=== PATIENT | female | born 1955 | race Caucasian/White ===

== ENCOUNTER → 2018-03-28 10:26 | Outpatient (CLI) | payer OTHER, SELFPAY | PROVIDERS: Family Provider Family Medicine; PCP Family Medicine; Visit Provider Obstetrics & Gynecology | DX: Z12.31 Encounter for screening mammogram for malignant neoplasm of breast (principal); Z78.0 Asymptomatic menopausal state; M81.0 Age-related osteoporosis without current pathological fracture | CPT/HCPCS: 77063; 77067; 77080 ==

== ENCOUNTER → 2018-04-09 09:31 | Outpatient (CLI) | payer OTHER, SELFPAY | PROVIDERS: Family Provider Family Medicine; PCP Family Medicine; Visit Provider Physician Assistant | DX: M25.511 Pain in right shoulder (principal); G89.29 Other chronic pain | CPT/HCPCS: 73030 ==

== ENCOUNTER 2018-04-20 10:30 | Outpatient (RCR) | payer OTHER, SELFPAY ==
--- NOTE | 2018-04-09 16:03 | HP.PTEVAL ---
Patient's Visit Information MAHIN NG is a 62 year old F referred to Physical Therapy by AMEYA Serna with a diagnosis of R shoulder rot cuff impingement. Date of Evaluation: 04/09/18 Physical Therapist: Elliott Templeton PT, - Visit Plan Frequency: 2x /Week Duration: 2-4 Weeks Plan: R shoulder strengthening (rot cuff), scap stab ex's, UBE, and HEP - Subjective Subjective: Pt reports her R shoulder has been sore for 4 mos. Pt reports her pain had an insidious onset in nature. Pt reports she is L hand dom. No PMHx of R wshoulder complications. Pt is not currently working. Pt notes she has diff with carrying heavy objects. Pt reports occasional sleep diff secondary to pain. Pt reports she still does all of her house duties, but she has pain with most of her acivities. Pt reports taking a hot shower helps to decrease her pain. Pt did have xrays which revealed no tears at this time. 1/10 at rest, 7/10 at worst - Pain R shoulder Pain Intensity (Out of 10): 1 Pain Intensity Range: 7 - Objective Neuro: B UE sensation is WNL to light touch. B bicepital reflex= 2/3. Palpation: Pt is mostly sore on the lateral aspect of R shoulder. ROM: L shoulder flex= 160, abd= 170, ER= 60, IR WNL; R shoulder flex= 160, abd= 170, ER= 60, IR WNL. MMT: L UE grossly 5/5 throughout. R LE grossly 4-/5 and painful with all testing. Special tests: Pos empty can sign - Goals Goal 1:: Decrease R shoulder pain x 50% to aid with sleep Goal Time Frame: 2-4 Weeks Goal 2:: Increase R shoudler strength x 1 grade to aid with IADL's Goal Time Frame: 2-4 Weeks Goal 3:: I with HEP Goal Time Frame: 2-4 Weeks - Rehabilitation Potential Physical Therapy Diagnosis: R shoulder pain and weakness secondary to R rot cuff impingement. Rehabilitation Potential: Good - Anticipated Interventions Patient/Client Instruction: Educate patient on: Condition, Plan of Care For the Purpose of:: To improve self management Therapeutic Exercise to Include: Strength training, Endurance training, Flexibilty training, Passive ROM, Scapular Strength/Stabilization For the Purpose of:: To decrease pain, To increase ROM, To improve muscle performance and motor function Cryotherapy (ice pack, ice massage): Yes For the Purpose of:: To decrease pain Thank you for the opportunity to evaluate your patient. For Medicare and Medicare HMO plans, please review the plan of care and approve it. It will need to be FAXED BACK to us at [phone] for Medicare purposes. Please let me know if there are questions or concerns regarding this plan of care. Physician Signature: Date:
--- NOTE | 2018-04-20 11:01 | HP.PTDCSUM ---
HP - PT D/C Summary It has been my pleasure to treat MAHIN NG under orders from AMEYA Serna, for the diagnosis of R shoulder rot cuff impingement for a total of 5 visit(s). Discharge Date: Please see the following information for a summary of their discharge status. - Subjective Subjective: Pt reports no pain this date - Pain R shoulder Pain Intensity (Out of 10): 0 - Overall Improvement % Improvement: 85 - Objective Objective/Function: R shoulder pain 0/10. R shoulder MMT: 5/5 throughout. I with HEP. Rx goals achieved - Goals Goal 1:: Decrease R shoulder pain x 50% to aid with sleep Goal Progress: Goal Met Goal 2:: Increase R shoudler strength x 1 grade to aid with IADL's Goal Progress: Goal Met Goal 3:: I with HEP Goal Progress: Goal Met - Plan Plan: discharge - D/C Information If there are questions or concerns regarding this patient's physical therapy, please feel free to call me at [phone]. Thank you for the referral of this patient. Sincerely, Elliott Templeton, PT,
== END 2018-04-20 13:43 | disposition home or self-care (01) ==
LOC: PT 10:30
PROVIDERS: Family Provider Family Medicine; PCP Family Medicine; Visit Provider Physician Assistant
DX: M75.41 Impingement syndrome of right shoulder (principal)
CPT/HCPCS: 97110; 97161; 97530

== ENCOUNTER → 2018-06-27 09:58 | Outpatient (CLI) | payer OTHER, SELFPAY ==
[2018-06-27 11:53] LABS: Absolute Lymphocyte Count 1.26 X10^3/ul (0.83-4.51); Absolute Neutrophil Count 1.9 X10^3/uL (2.0-7.7); Basophil# 0.03 X10^3/uL; Basophil% 0.8 % (0-1); Eosinophil# 0.11 X10^3/uL; Eosinophils% 3.1 % (0-5); Hematocrit 43.2 % (37-47); Lymphocyte # 1.26 X10^3/ul (4.0); Lymphocyte % 35.2 % (19-41); Mean Corp Hgb Conc 32.4 g/gl (32-36); Mean Corpuscular Hgb 30.2 pg (27.0-32.0); Mean Corpuscular Volume 93.1 fL (81-99); Monocyte# 0.31 X10^3/uL; Monocyte% 8.7 % (0-10); Neutrophil # 1.87 X10^3/uL (2.7-7.7); Neutrophil % 52.2 % (47-70); Platelet Count 246 K/mm3 (150-450); RBC Distribution Width CV 13.6 % (11.6-14.6); RBC Distribution Width SD 44.9 fl (35.1-43.9); Red Blood Count 4.64 M/mm3 (4.2-5.4); White Blood Count 3.6 K/mm3 (4.4-11.0)
[2018-06-27 12:00] LABS: POSITIVE COUNT NO; POSITIVE DIFFERENTIAL NO; POSITIVE MORPHOLOGY NO
[2018-06-27 12:04] LABS: ALB/GLOB Ratio 1.1 RATIO (0.9-2.4); AST(SGOT) 22 U/L (15-37); Alanine Aminotransfer ALT/SGPT 29 U/L (13-56); Alkaline Phosphatase 136 U/L (45-117); Anion Gap 7 (5-15); BUN 11 mg/dL (7-18); Calcium,Total 9.1 mg/dL (8.5-10.1); Chloride 104 mmol/L (98-107); Cholesterol 218 mg/dL (200); Creatinine, Serum 0.78 mg/dL (0.55-1.02); EST Glomerular Filtration Rate 79 mL/min (>60); Est Glom Filt Rate - Afr Amer 96 mL/min (>60); Globulin 3.6 g/dL (2.2-4.2); Glucose 78 mg/dL (74-106); High Density Lipoprotein 65 mg/dL; Protein, Total 7.6 g/dL (6.4-8.2); Sodium Level 141 mmol/L (136-145); Triglycerides 94 mg/dL; Very Low Density Lipoprotein 19 mg/dL (5-40)
== END ==
PROVIDERS: Family Provider Family Medicine; PCP Family Medicine; Referring Provider Family Medicine; Visit Provider Family Medicine
DX: E78.5 Hyperlipidemia, unspecified (principal); R53.83 Other fatigue
CPT/HCPCS: 36415; 80053; 80061; 85025

== ENCOUNTER → 2019-03-09 09:41 | Outpatient (CLI) | payer OTHER, SELFPAY ==
--- NOTE | 2019-03-09 09:44 | BI_ITS ---
MAMMOGRAPHY - BILATERAL SCREENING REASON FOR EXAM: Female, 63 years old. Routine annual screening examination. PERTINENT HISTORY: Mother with breast cancer. Aunt with breast cancer. TECHNIQUE: Digital bilateral breast jaclyn (3D mammographic acquisition) in the CC and MLO projections. 2-D mediolateral oblique (MLO) and craniocaudad (CC) views of both breasts were obtained. CAD: Full Field Digital Mammography with Computer Added Detection was performed. COMPARISON: Comparison is made with prior study dated March 28, 2018 and January 19, 2017. FINDINGS: Breast Composition: The breasts are extremely dense, which lowers the sensitivity of mammography. There are no dominant masses or suspicious calcifications. 2 tissue markers are seen in the deep midportion of the right breast incomplete with prior biopsies. No other significant abnormalities are identified. There has been no significant change since the prior study. BI/SCREEN MAMM (CAD) W/JACLYN BILAT IMPRESSION: Stable bilateral screening mammogram. Yearly follow-up mammogram recommended. (A) ASSESSMENT CATEGORY: BIRADS Category 2: Benign. A letter regarding these results will be sent to the patient by the facility within 30 days. Approximately 10% of breast cancers are not detected by mammography. A normal mammogram should not delay biopsy of a clinically suspicious abnormality. [id number] Electronically Signed: Nik Patton, at 8:28 EDT , Service support ,
== END ==
PROVIDERS: Family Provider Family Medicine; PCP Family Medicine; Referring Provider Obstetrics & Gynecology; Visit Provider Obstetrics & Gynecology
DX: Z12.31 Encounter for screening mammogram for malignant neoplasm of breast (principal)
CPT/HCPCS: 77063; 77067

== ENCOUNTER → 2019-07-26 10:05 | Outpatient (CLI) | payer OTHER, SELFPAY ==
[2019-07-26 11:04] LABS: Calcium,Total 9.2 mg/dL (8.5-10.1)
[2019-07-26 11:19] LABS: Vitamin D,25 Hydroxy 33.7 ng/mL (29.95-100.01)
== END ==
PROVIDERS: Visit Provider Obstetrics & Gynecology
DX: M81.0 Age-related osteoporosis without current pathological fracture (principal)
CPT/HCPCS: 36415; 82306; 82310

== ENCOUNTER → 2020-02-21 17:53 | Outpatient (CLI) | payer OTHER, SELFPAY ==
[2019-09-05 09:45] VITALS: BMI 21.4
== END ==
PROVIDERS: PCP Family Medicine; Referring Provider Family Medicine; Visit Provider Family Medicine
DX: Z20.828 Contact with and (suspected) exposure to other viral communicable diseases (principal); R05 Cough
CPT/HCPCS: 87635; G2023; U0003

== ENCOUNTER → 2020-03-05 08:07 | Outpatient (CLI) | payer OTHER, SELFPAY ==
[2020-03-04 15:02] VITALS: BMI 21.4
[2020-03-05 08:38] LABS: Absolute Lymphocyte Count 0.93 X10^3/uL (0.83-4.51); Absolute Neutrophil Count 5.4 X10^3/uL (2.0-7.7); Basophil# 0.02 X10^3/uL; Basophil% 0.3 % (0-1); Eosinophil# 0.01 X10^3/uL; Eosinophils% 0.1 % (0-5); Hemoglobin 13.6 g/dL (12.0-15.0); Lymphocyte # 0.93 X10^3/ul (4.0); Lymphocyte % 13.9 % (19-41); Mean Corp Hgb Conc 32.4 g/dL (32-36); Mean Corpuscular Hgb 30.3 pg (27.0-32.0); Mean Corpuscular Volume 93.5 fL (81-99); Mean Platelet Vol. 9.4 fl (6.2-12.0); Monocyte# 0.34 X10^3/uL; Monocyte% 5.1 % (0-10); NRBC Flagged by Analyzer 0 % (0-5); Neutrophil % 80.5 % (47-70); Platelet Count 238 K/mm3 (150-450); RBC Distribution Width CV 12.8 % (11.6-14.6); RBC Distribution Width SD 43.6 fl (35.1-43.9); Red Blood Count 4.49 M/mm3 (4.2-5.4); White Blood Count 6.7 K/mm3 (4.4-11.0)
[2020-03-05 09:35] LABS: ALB/GLOB Ratio 1.1 RATIO (0.9-2.4); AST(SGOT) 24 U/L (15-37); Alanine Aminotransfer ALT/SGPT 43 U/L (13-56); Albumin, Serum 3.9 g/dL (3.2-5.0); Alkaline Phosphatase 99 U/L (45-117); Anion Gap 3 (5-15); BUN 12 mg/dL (7-18); BUN/Creat Ratio 17.6 RATIO (10-20); Calcium,Total 9.3 mg/dL (8.5-10.1); Chloride 108 mmol/L (98-107); Cholesterol 225 mg/dL (200); Creatinine, Serum 0.68 mg/dL (0.55-1.02); EST Glomerular Filtration Rate 92 mL/min (>60); Est Glom Filt Rate - Afr Amer 111 mL/min (>60); Globulin 3.7 g/dL (2.2-4.2); Glucose 119 mg/dL (74-106); High Density Lipoprotein 65 mg/dL; Potassium 3.9 mmol/L (3.5-5.1); Protein, Total 7.6 g/dL (6.4-8.2); Sodium Level 139 mmol/L (136-145); Triglycerides 100 mg/dL; Very Low Density Lipoprotein 20 mg/dL (5-40)
== END ==
PROVIDERS: PCP Family Medicine; Referring Provider Family Medicine; Visit Provider Family Medicine
DX: E78.5 Hyperlipidemia, unspecified (principal); Z51.81 Encounter for therapeutic drug level monitoring
CPT/HCPCS: 36415; 80053; 80061; 85025

== ENCOUNTER → 2020-03-12 07:55 | Outpatient (CLI) | payer OTHER, SELFPAY ==
[2019-09-05 09:45] VITALS: BMI 21.4
[2020-03-04 15:02] VITALS: BMI 21.4
--- NOTE | 2020-03-12 08:07 | BI_ITS ---
MAMMOGRAPHY - BILATERAL SCREENING REASON FOR EXAM: Female, 64 years old. Routine annual screening examination. PERTINENT HISTORY: Mother with breast cancer. Aunt with breast cancer. Prior right stereotactic breast biopsy. TECHNIQUE: Digital bilateral breast jaclyn (3D mammographic acquisition) in the CC and MLO projections. 2-D mediolateral oblique (MLO) and craniocaudad (CC) views of both breasts were obtained. CAD: Full Field Digital Mammography with Computer Added Detection was performed. COMPARISON: Comparison is made with prior study dated 03/09/2019 and 03/28/2018. FINDINGS: Breast Composition: The breasts are extremely dense, which lowers the sensitivity of mammography. There are no dominant masses or suspicious calcifications. Once again, 2 tissue clip markers are seen in the inferior central portion of the right breast. No other significant abnormalities are identified. There has been no significant change since the prior study. BI/SCREEN MAMM (CAD) W/JACLYN BILAT IMPRESSION: Stable bilateral screening mammogram. Yearly follow-up mammogram recommended. (A) ASSESSMENT CATEGORY: BIRADS Category 2: Benign. A letter regarding these results will be sent to the patient by the facility within 30 days. Approximately 10% of breast cancers are not detected by mammography. A normal mammogram should not delay biopsy of a clinically suspicious abnormality. [id number] Electronically Signed: Nik Patton, at 9:03 EDT , Service support ,
== END ==
PROVIDERS: PCP Family Medicine; Referring Provider Family Medicine; Visit Provider Family Medicine
DX: Z12.31 Encounter for screening mammogram for malignant neoplasm of breast (principal); Z80.3 Family history of malignant neoplasm of breast
CPT/HCPCS: 77063; 77067

== ENCOUNTER → 2020-05-16 08:46 | Outpatient (CLI) | payer OTHER, SELFPAY ==
[2020-05-07 08:42] VITALS: BMI 21.4
--- NOTE | 2020-05-16 08:48 | MRI_ITS ---
STUDY: MRI RIGHT SHOULDER REASON FOR EXAM: Female, 64 years old. no known trauma, c/o pain, decreased rom and strength over 2 yrs TECHNIQUE: Standardized fat and water weighted pulse sequences were obtained in all 3 orthogonal planes. COMPARISON: X-ray 04/09/2018 FINDINGS: Mild supraspinatus and infraspinatus tendinosis and peritendinitis is but no macro tear or muscular atrophy. Normal subscapularis tendon. Normal teres minor tendon. Normal supraspinatus muscle. Normal infraspinatus muscle. Normal subscapularis muscle. Normal teres minor muscle. There is a small volume joint effusion of the glenohumeral joint. Normal humeral head and visualized proximal humerus. Normal biceps labral complex. Normal intracapsular long biceps tendon. Normal labrum. Normal capsulo- ligamentous complex. Normal rotator interval. Normal acromioclavicular articulation. There is a Type II morphology (curved), with a neutral orientation. There is minimal fluid distention of the subacromial bursa, consistent with mild subacromial-subdeltoid bursitis. Normal visualized coracohumeral and coracoacromial ligaments. Normal quadrilateral space. Normal axillary space. Normal deltoid muscle. Normal trapezius muscle. MRI/Upper Ext Joint Only(Routine) IMPRESSION: Mild supraspinatus and infraspinatus tendinosis and peritendinitis is but no macro tear or muscular atrophy. Electronically Signed: Gabino Patricia MD at 11:40 EDT Tel , Service support ,
== END ==
PROVIDERS: PCP Family Medicine; Referring Provider Physician Assistant; Visit Provider Physician Assistant
DX: M75.41 Impingement syndrome of right shoulder (principal); M25.511 Pain in right shoulder; G89.29 Other chronic pain
CPT/HCPCS: 73221

== ENCOUNTER → 2020-08-28 10:21 | Outpatient (CLI) | payer MEDICARE, OTHER, SELFPAY ==
[2020-05-19 14:06] VITALS: BMI 21.4
[2020-08-28 10:30] VITALS: BP 146/84; PULSE 93; RESP 16; TEMP 35.5; O2SAT 100; BMI 20.7
[2020-08-28 10:45] VITALS: BP 108/70; PULSE 90
[2020-08-28] MEDS: DENOSUMAB 60 MG/ML SQ (10:53)
== END ==
PROVIDERS: PCP Family Medicine; Referring Provider Internal Medicine Endocrinology, Diabetes & Metabolism; Visit Provider Internal Medicine Endocrinology, Diabetes & Metabolism
DX: M81.0 Age-related osteoporosis without current pathological fracture (principal)
CPT/HCPCS: 96372; J0897

== ENCOUNTER → 2021-02-26 12:49 | Outpatient (CLI) | payer MEDICARE, OTHER, SELFPAY ==
[2020-08-28 10:30] VITALS: BMI 20.7
[2021-02-26] MEDS: DENOSUMAB 60 MG/ML SC (13:06)
[2021-02-26 13:14] VITALS: BP 124/81; PULSE 73; RESP 16; TEMP 36.4; O2SAT 99; BMI 20.7
== END ==
PROVIDERS: PCP Family Medicine; Referring Provider Internal Medicine Endocrinology, Diabetes & Metabolism; Visit Provider Internal Medicine Endocrinology, Diabetes & Metabolism
DX: M81.0 Age-related osteoporosis without current pathological fracture (principal)
CPT/HCPCS: 96372; J0897

== ENCOUNTER → 2021-03-11 08:35 | Outpatient (CLI) | payer MEDICARE, OTHER, SELFPAY ==
[2021-03-11 08:08] VITALS: BMI 22.1
[2021-03-11 12:17] LABS: Absolute Lymphocyte Count 1.14 X10^3/uL (0.83-4.51); Absolute Neutrophil Count 1.8 X10^3/uL (2.0-7.7); Basophil# 0.03 X10^3/uL; Basophil% 0.9 % (0-1); Eosinophil# 0.14 X10^3/uL; Eosinophils% 4.1 % (0-5); Hematocrit 44.2 % (37-47); Lymphocyte # 1.14 X10^3/ul (0.83-4.51); Lymphocyte % 33.2 % (19-41); Mean Corp Hgb Conc 31.7 g/dL (32-36); Mean Corpuscular Hgb 29.4 pg (27.0-32.0); Mean Corpuscular Volume 92.7 fL (81-99); Mean Platelet Vol. 10.2 fl (6.2-12.0); Monocyte# 0.32 X10^3/uL; Monocyte% 9.3 % (0-10); NRBC Flagged by Analyzer 0 % (0-5); Neutrophil % 52.5 % (47-70); Platelet Count 204 K/mm3 (150-450); RBC Distribution Width CV 12.7 % (11.6-14.6); RBC Distribution Width SD 43.3 fl (35.1-43.9); Red Blood Count 4.77 M/mm3 (4.2-5.4); White Blood Count 3.4 K/mm3 (4.4-11.0)
[2021-03-11 12:23] LABS: Vitamin D,25 Hydroxy 41.8 ng/mL
[2021-03-11 12:29] LABS: ALB/GLOB Ratio 1.1 RATIO (0.9-2.4); AST(SGOT) 27 U/L (15-37); Alanine Aminotransfer ALT/SGPT 35 U/L (13-56); Albumin, Serum 3.9 g/dL (3.2-5.0); Alkaline Phosphatase 91 U/L (45-117); Anion Gap 6 (5-15); BUN 13 mg/dL (7-18); BUN/Creat Ratio 15.2 RATIO (10-20); Calcium,Total 9.3 mg/dL (8.5-10.1); Chloride 104 mmol/L (98-107); Cholesterol 216 mg/dL (200); Creatinine, Serum 0.85 mg/dL (0.55-1.02); EST Glomerular Filtration Rate 71 mL/min (>60); Est Glom Filt Rate - Afr Amer 86 mL/min (>60); Globulin 3.6 g/dL (2.2-4.2); Glucose 105 mg/dL (74-106); High Density Lipoprotein 59 mg/dL; Potassium 4.3 mmol/L (3.5-5.1); Protein, Total 7.5 g/dL (6.4-8.2); Sodium Level 141 mmol/L (136-145); Thyroid Stim Hormone (TSH) 3.66 uIU/mL (0.358-3.74); Triglycerides 95 mg/dL; Very Low Density Lipoprotein 19 mg/dL (5-40)
== END ==
PROVIDERS: PCP Family Medicine; Referring Provider Internal Medicine Endocrinology, Diabetes & Metabolism; Visit Provider Internal Medicine Endocrinology, Diabetes & Metabolism
DX: E78.2 Mixed hyperlipidemia (principal); M81.0 Age-related osteoporosis without current pathological fracture; E55.9 Vitamin D deficiency, unspecified
CPT/HCPCS: 36415; 80053; 80061; 82306; 84443; 85025

== ENCOUNTER → 2021-04-21 10:30 | Outpatient (CLI) | payer MEDICARE, OTHER, SELFPAY ==
--- NOTE | 2021-04-21 10:32 | BI_ITS ---
MAMMOGRAPHY - BILATERAL SCREENING REASON FOR EXAM: Female, 65 years old. Routine annual screening examination. PERTINENT HISTORY: Mother with breast cancer. Aunts with breast cancer. Remote right stereotactic breast biopsies. TECHNIQUE: Digital bilateral breast jaclyn (3D mammographic acquisition) in the CC and MLO projections. 2-D mediolateral oblique (MLO) and craniocaudad (CC) views of both breasts were obtained. CAD: Full Field Digital Mammography with Computer Added Detection was performed. COMPARISON: Comparison is made with prior study dated 03/12/2020 and 03/09/2019. FINDINGS: Breast Composition: The breasts are extremely dense, which lowers the sensitivity of mammography. There are no dominant masses or suspicious calcifications. No other significant abnormalities are identified. There has been no significant change since the prior study. BI/SCRN MAMM (CAD)W/JACLYN BILAT IMPRESSION: Stable bilateral screening mammogram. Yearly follow-up mammogram recommended. (A) ASSESSMENT CATEGORY: BIRADS Category 2: Benign. A letter regarding these results will be sent to the patient by the facility within 30 days. Approximately 10% of breast cancers are not detected by mammography. A normal mammogram should not delay biopsy of a clinically suspicious abnormality. [id number] Electronically Signed: Nik Patton MD at 12:28 EDT , Service support ,
== END ==
PROVIDERS: PCP Family Medicine; Referring Provider Family Medicine; Visit Provider Family Medicine
DX: Z12.31 Encounter for screening mammogram for malignant neoplasm of breast (principal)
CPT/HCPCS: 77063; 77067

== ENCOUNTER 2021-08-27 13:10 | Outpatient (CLI) | payer MEDICARE, OTHER, SELFPAY ==
[2021-08-27 13:29] VITALS: BP 125/58; PULSE 74; RESP 16; TEMP 36.3; O2SAT 100; BMI 21.6
[2021-08-27] MEDS: DENOSUMAB 60 MG/ML SC (13:33)
== END 2021-08-27 23:59 | disposition short-term general hospital (02) ==
LOC: MEDOUTP 13:12
PROVIDERS: PCP Family Medicine; Referring Provider Internal Medicine Endocrinology, Diabetes & Metabolism; Visit Provider Internal Medicine Endocrinology, Diabetes & Metabolism
DX: M81.0 Age-related osteoporosis without current pathological fracture (principal)
CPT/HCPCS: 96372; J0897

== ENCOUNTER → 2022-02-25 | Outpatient (CLI) | payer MEDICARE, OTHER, SELFPAY ==
[2022-02-25] MEDS: DENOSUMAB 60 MG/ML SC (13:13)
[2022-02-25 13:21] VITALS: BP 123/80; PULSE 87; RESP 16; TEMP 36.2; O2SAT 100
== END | disposition home or self-care (01) ==
LOC: MEDOUTP 13:04
PROVIDERS: PCP Family Medicine; Referring Provider Internal Medicine Endocrinology, Diabetes & Metabolism; Visit Provider Internal Medicine Endocrinology, Diabetes & Metabolism
DX: M81.0 Age-related osteoporosis without current pathological fracture (principal)
CPT/HCPCS: 96372; J0897

== ENCOUNTER → 2022-03-15 | Outpatient (CLI) | payer MEDICARE, OTHER, SELFPAY ==
[2022-03-15 09:31] LABS: Absolute Lymphocyte Count 1.29 X10^3/uL (0.83-4.51); Absolute Neutrophil Count 1.6 X10^3/uL (2.0-7.7); Basophil# 0.03 X10^3/uL; Basophil% 0.9 % (0-1); Hematocrit 42.5 % (37-47); Hemoglobin 14.1 g/dL (12.0-15.0); Lymphocyte # 1.29 X10^3/ul (0.83-4.51); Lymphocyte % 39.1 % (19-41); Mean Corp Hgb Conc 33.2 g/dL (32-36); Mean Corpuscular Hgb 30.4 pg (27.0-32.0); Mean Corpuscular Volume 91.6 fL (81-99); Mean Platelet Vol. 9.9 fl (6.2-12.0); Monocyte% 9.1 % (0-10); NRBC Flagged by Analyzer 0 % (0-5); Neutrophil # 1.57 X10^3/uL (2.7-7.7); Neutrophil % 47.6 % (47-70); Platelet Count 231 K/mm3 (150-450); RBC Distribution Width CV 13.2 % (11.6-14.6); RBC Distribution Width SD 44.2 fl (35.1-43.9); Red Blood Count 4.64 M/mm3 (4.2-5.4); White Blood Count 3.3 K/mm3 (4.4-11.0)
[2022-03-15 10:02] LABS: Vitamin D,25 Hydroxy 61.3 ng/mL
[2022-03-15 10:15] LABS: ALB/GLOB Ratio 1.2 RATIO (0.9-2.4); AST(SGOT) 20 U/L (15-37); Alanine Aminotransfer ALT/SGPT 26 U/L (13-56); Albumin, Serum 3.8 g/dL (3.2-5.0); Alkaline Phosphatase 90 U/L (45-117); Anion Gap 5 (5-15); BUN 13 mg/dL (7-18); BUN/Creat Ratio 18.3 RATIO (10-20); Calcium,Total 9.2 mg/dL (8.5-10.1); Chloride 106 mmol/L (98-107); Cholesterol 214 mg/dL (200); Creatinine, Serum 0.71 mg/dL (0.55-1.02); EST Glomerular Filtration Rate 87 mL/min (>60); Est Glom Filt Rate - Afr Amer 105 mL/min (>60); Globulin 3.2 g/dL (2.2-4.2); Glucose 88 mg/dL (74-106); High Density Lipoprotein 48 mg/dL; Potassium 3.9 mmol/L (3.5-5.1); Sodium Level 140 mmol/L (136-145); Thyroid Stim Hormone (TSH) 3.33 uIU/mL (0.358-3.74); Triglycerides 171 mg/dL; Very Low Density Lipoprotein 34 mg/dL (5-40)
== END | disposition home or self-care (01) ==
LOC: LAB 08:23
PROVIDERS: PCP Family Medicine; Referring Provider Internal Medicine Endocrinology, Diabetes & Metabolism; Visit Provider Internal Medicine Endocrinology, Diabetes & Metabolism
DX: R53.83 Other fatigue (principal); E55.9 Vitamin D deficiency, unspecified; M81.0 Age-related osteoporosis without current pathological fracture; E78.2 Mixed hyperlipidemia; Z51.81 Encounter for therapeutic drug level monitoring
CPT/HCPCS: 36415; 80053; 80061; 82306; 84443; 85025

== ENCOUNTER → 2022-04-28 | Outpatient (CLI) | payer MEDICARE, OTHER, SELFPAY ==
--- NOTE | 2022-04-28 15:43 | BI_ITS ---
MAMMOGRAPHY - BILATERAL SCREENING REASON FOR EXAM: Female, 66 years old. Routine annual screening examination. PERTINENT HISTORY: Mother with breast cancer. Aunt with breast cancer. Prior right stereotactic breast biopsy. TECHNIQUE: Digital bilateral breast jaclyn (3D mammographic acquisition) in the CC and MLO projections. 2-D mediolateral oblique (MLO) and craniocaudad (CC) views of both breasts were obtained. CAD: Full Field Digital Mammography with Computer Added Detection was performed. COMPARISON: Comparison is made with prior study 04/21/2021 and 03/12/2020. FINDINGS: Breast Composition: The breasts are extremely dense, which lowers the sensitivity of mammography. There are no dominant masses or suspicious calcifications. 2 tissue clip markers are seen in the slightly inferior central portion of the right breast. No other significant abnormalities are identified. There has been no significant change since the prior study. BI/SCRN MAMM (CAD)W/JACLYN BILAT IMPRESSION: Stable bilateral screening mammogram. Yearly follow-up mammogram recommended. (A) ASSESSMENT CATEGORY: BIRADS Category 2: Benign. A letter regarding these results will be sent to the patient by the facility within 30 days. Approximately 10% of breast cancers are not detected by mammography. A normal mammogram should not delay biopsy of a clinically suspicious abnormality. [id number] Electronically Signed: Nik Patton MD at 8:32 EDT ,
== END | disposition home or self-care (01) ==
LOC: OPBI 15:41
PROVIDERS: PCP Family Medicine; Referring Provider Family Medicine; Visit Provider Family Medicine
DX: Z12.31 Encounter for screening mammogram for malignant neoplasm of breast (principal); Z80.3 Family history of malignant neoplasm of breast
CPT/HCPCS: 77063; 77067

== ENCOUNTER → 2022-08-26 | Outpatient (CLI) | payer MEDICARE, OTHER, SELFPAY ==
[2022-08-26 13:10] VITALS: BP 132/65; PULSE 78; RESP 16; TEMP 36.6; O2SAT 98
[2022-08-26] MEDS: DENOSUMAB 60 MG/ML SC (13:15)
== END | disposition home or self-care (01) ==
LOC: MEDOUTP 12:54
PROVIDERS: PCP Family Medicine; Referring Provider Internal Medicine Endocrinology, Diabetes & Metabolism; Visit Provider Internal Medicine Endocrinology, Diabetes & Metabolism
DX: M81.0 Age-related osteoporosis without current pathological fracture (principal)
CPT/HCPCS: 96372; J0897

== ENCOUNTER 2023-02-24 12:55 | Outpatient (CLI) | payer MEDICARE, OTHER, SELFPAY ==
[2023-02-24 13:07] VITALS: BP 106/70; PULSE 68; RESP 16; TEMP 35.9; O2SAT 98; BMI 21.6
[2023-02-24] MEDS: DENOSUMAB 60 MG/ML SC (13:15)
== END 2023-02-24 12:56 | disposition home or self-care (01) ==
LOC: MEDOUTP 12:55
PROVIDERS: PCP Family Medicine; Referring Provider Internal Medicine Endocrinology, Diabetes & Metabolism; Visit Provider Internal Medicine Endocrinology, Diabetes & Metabolism
DX: M81.0 Age-related osteoporosis without current pathological fracture (principal)
CPT/HCPCS: 96372; J0897

== ENCOUNTER 2023-03-13 08:24 | Outpatient (CLI) | payer MEDICARE, OTHER, SELFPAY ==
[2023-03-13 10:08] LABS: Absolute Neutrophil Count 1.8 X10^3/uL (2.0-7.7); Basophil# 0.04 X10^3/uL; Basophil% 1.2 % (0-1); Eosinophil# 0.11 X10^3/uL; Eosinophils% 3.2 % (0-5); Hemoglobin 14.4 g/dL (12.0-15.0); Lymphocyte % 31.9 % (19-41); Mean Corp Hgb Conc 31.3 g/dL (32-36); Mean Corpuscular Hgb 29.4 pg (27.0-32.0); Mean Corpuscular Volume 94.1 fL (81-99); Mean Platelet Vol. 10.1 fl (6.2-12.0); Monocyte# 0.38 X10^3/uL; NRBC Flagged by Analyzer 0 % (0-5); Neutrophil # 1.81 X10^3/uL (2.7-7.7); Neutrophil % 52.4 % (47-70); Platelet Count 217 K/mm3 (150-450); RBC Distribution Width CV 13.1 % (11.6-14.6); Red Blood Count 4.89 M/mm3 (4.2-5.4); White Blood Count 3.5 K/mm3 (4.4-11.0)
[2023-03-13 10:34] LABS: AST(SGOT) 22 U/L (15-37); Alanine Aminotransfer ALT/SGPT 29 U/L (13-56); Albumin, Serum 3.6 g/dL (3.2-5.0); Alkaline Phosphatase 102 U/L (45-117); Anion Gap 3 (5-15); BUN 12 mg/dL (7-18); BUN/Creat Ratio 15.2 RATIO (10-20); Calcium,Total 9.5 mg/dL (8.5-10.1); Chloride 107 mmol/L (98-107); Creatinine, Serum 0.79 mg/dL (0.55-1.02); EST Glomerular Filtration Rate 77 mL/min (>60); Est Glom Filt Rate - Afr Amer 94 mL/min (>60); Globulin 3.5 g/dL (2.2-4.2); Glucose 87 mg/dL (74-106); Potassium 4.1 mmol/L (3.5-5.1); Protein, Total 7.1 g/dL (6.4-8.2); Sodium Level 141 mmol/L (136-145)
[2023-03-13 10:40] LABS: Vitamin D,25 Hydroxy 57.9 ng/mL
== END 2023-03-13 23:59 | disposition home or self-care (01) ==
PROVIDERS: Internal Medicine Endocrinology, Diabetes & Metabolism; PCP Family Medicine; Referring Provider Family Medicine; Visit Provider Family Medicine
DX: Z51.81 Encounter for therapeutic drug level monitoring (principal); E55.9 Vitamin D deficiency, unspecified; M81.0 Age-related osteoporosis without current pathological fracture
CPT/HCPCS: 36415; 80053; 82306; 85025

== ENCOUNTER → 2023-05-08 | Outpatient (CLI) | payer MEDICARE, OTHER, SELFPAY ==
--- NOTE | 2023-05-08 08:17 | BI_ITS ---
MAMMOGRAPHY - BILATERAL SCREENING REASON FOR EXAM: Female, 67 years old. Routine annual screening examination. PERTINENT HISTORY: Mother with breast cancer. Aunts with breast cancer. History of prior right breast biopsies. TECHNIQUE: Digital bilateral breast jaclyn (3D mammographic acquisition) in the CC and MLO projections. 2-D mediolateral oblique (MLO) and craniocaudad (CC) views of both breasts were obtained. CAD: Full Field Digital Mammography with Computer Added Detection was performed. COMPARISON: Comparison is made with prior study dated April 28, 2022 and April 21, 2021. FINDINGS: Breast Composition: The breasts are extremely dense, which lowers the sensitivity of mammography. There are no dominant masses or suspicious calcifications. 2 tissue markers are once again seen in the slightly inferior central portion of the right breast. No other significant abnormalities are identified. There has been no significant change since the prior study. BI/SCRN MAMM (CAD)W/JACLYN BILAT IMPRESSION: Stable bilateral screening mammogram. Yearly follow-up mammogram recommended. (A) ASSESSMENT CATEGORY: BIRADS Category 2: Benign. A letter regarding these results will be sent to the patient by the facility within 30 days. Approximately 10% of breast cancers are not detected by mammography. A normal mammogram should not delay biopsy of a clinically suspicious abnormality. [id number] Electronically Signed: Nik Patton MD at 13:42 EDT ,
== END | disposition home or self-care (01) ==
LOC: OPBI 08:16
PROVIDERS: PCP Family Medicine; Referring Provider Family Medicine; Visit Provider Family Medicine
DX: Z12.31 Encounter for screening mammogram for malignant neoplasm of breast (principal); Z80.3 Family history of malignant neoplasm of breast
CPT/HCPCS: 77063; 77067

== ENCOUNTER 2023-08-25 12:53 | Outpatient (CLI) | payer MEDICARE, OTHER, SELFPAY ==
[2023-08-25 13:12] VITALS: BP 120/60; PULSE 58; RESP 16; TEMP 36.7; O2SAT 97; BMI 21.6
[2023-08-25] MEDS: DENOSUMAB 60 MG/ML SC (13:15)
== END 2023-08-25 12:54 | disposition home or self-care (01) ==
LOC: MEDOUTP 12:55
PROVIDERS: PCP Family Medicine; Referring Provider Internal Medicine Endocrinology, Diabetes & Metabolism; Visit Provider Internal Medicine Endocrinology, Diabetes & Metabolism
DX: M81.0 Age-related osteoporosis without current pathological fracture (principal)
CPT/HCPCS: 96372; J0897

== ENCOUNTER → 2024-03-18 | Outpatient (CLI) | payer MEDICARE, OTHER, SELFPAY ==
[2024-03-18 12:19] LABS: Vitamin D,25 Hydroxy 59.3 ng/mL
[2024-03-18 12:27] LABS: ALB/GLOB Ratio 0.9 RATIO (0.9-2.4); AST(SGOT) 23 U/L (15-37); Alanine Aminotransfer ALT/SGPT 31 U/L (13-56); Albumin, Serum 3.6 g/dL (3.2-5.0); Alkaline Phosphatase 100 U/L (45-117); Anion Gap 6 (5-15); BUN 13 mg/dL (7-18); BUN/Creat Ratio 20.1 RATIO (10-20); Calcium,Total 9.4 mg/dL (8.5-10.1); Chloride 106 mmol/L (98-107); Creatinine, Serum 0.65 mg/dL (0.55-1.02); EST Glomerular Filtration Rate 97 mL/min (>60); Est Glom Filt Rate - Afr Amer 117 mL/min (>60); Globulin 3.8 g/dL (2.2-4.2); Glucose 84 mg/dL (74-106); Potassium 4.7 mmol/L (3.5-5.1); Protein, Total 7.4 g/dL (6.4-8.2); Sodium Level 143 mmol/L (136-145); Thyroid Stim Hormone (TSH) 3.06 uIU/mL (0.358-3.74)
== END | disposition home or self-care (01) ==
LOC: BIMLAB 09:56
PROVIDERS: PCP Family Medicine; Referring Provider Internal Medicine Endocrinology, Diabetes & Metabolism; Visit Provider Internal Medicine Endocrinology, Diabetes & Metabolism
DX: M81.0 Age-related osteoporosis without current pathological fracture (principal); R53.83 Other fatigue; E55.9 Vitamin D deficiency, unspecified
CPT/HCPCS: 36415; 80053; 82306; 84443

== ENCOUNTER → 2024-06-07 | Outpatient (CLI) | payer MEDICARE, OTHER, SELFPAY ==
--- NOTE | 2024-06-07 07:58 | BI_ITS ---
MAMMOGRAPHY - BILATERAL SCREENING REASON FOR EXAM: Female, 68 years old. Routine annual screening examination. PERTINENT HISTORY: Mother with breast cancer. Aunts with breast cancer. Remote right Stereotactic breast biopsies. TECHNIQUE: Digital bilateral breast jaclyn (3D mammographic acquisition) in the CC and MLO projections. 2-D mediolateral oblique (MLO) and craniocaudad (CC) views of both breasts were obtained. CAD: Full Field Digital Mammography with Computer Added Detection was performed. COMPARISON: Comparison is made with prior study May 08, 2023 and April 28, 2022. FINDINGS: Breast Composition: The breasts are extremely dense, which lowers the sensitivity of mammography. There are no dominant masses or suspicious calcifications. Once again, 2 tissue markers are seen in the slightly inferior central portion of the right. No other significant abnormalities are identified. There has been no significant change since the prior study. BI/SCRN MAMM (CAD)W/JACLYN BILAT IMPRESSION: Stable bilateral screening mammogram. Yearly follow-up mammogram recommended. (A) ASSESSMENT CATEGORY: BIRADS Category 2: Benign. A letter regarding these results will be sent to the patient by the facility within 30 days. Approximately 10% of breast cancers are not detected by mammography. A normal mammogram should not delay biopsy of a clinically suspicious abnormality. [id number] Electronically Signed: Nik Patton MD at 8:29 EDT ,
--- OUTSIDE RECORDS SUMMARY | 2024-06-07 08:06 | XMS RPT_ITS | CCD ---
Author Organization [place] [employer] [facility] [employer] [facility] Results Test Name Value Interpretation Reference Range Facil ity HISTORY PHYSICALon HISTORY PHYSICAL HNO ID: [id number] Author: Vaughn Oconnell Service: General Surgery Author Type: Physician Type: HANDP Filed: 09/30/2020 10:30 AM Note Text: UPDATED HISTORY AND PHYSICAL EXAMINATION SERVICE DATE: 09/30/2020 SERVICE TIME: 10:30 AM PHYSICAL EXAM MUST BE COMPLETED ON ADMISSION The History and Physical (completed in the past 30 days) has been reviewed and the patient has been examined. The contents accurately reflect the patient's condition with the following additions or revisions since the HANDP was completed. Examination indicates no changes. This HANDP can be found in the Electronic Medical Record dated 09/24/20. // SIGNATURE: Vaughn Oconnell III, MD PATIENT NAME: Mahin Zimmerman DATE: September 30, 2020 TIME: 10:30 AM PAGER: Normal [facility] NURSING PROGon 09-30-2020 NURSING PROG HNO ID: [id number] Author: Becca Carballo RN Service: ? Author Type: Registered Nurse Type: Nursing Progress Note Filed: 09/30/2020 11:55 AM Note Text: Arrived in phase II via cart. Left lateral position. Sedated, but responds to verbal stimuli. Color normal; skin warm and dry. Respirations wnl and unlabored. Abdomen soft and with + bowel sounds in quads X 4. Patient resting comfortably. Dr. Oconnell at bedside to review procedure and recommendations. Becca Funes [facility] Katia 09-25-2020 JOSE LUIS Telephone (ASWSTR) -------- MAHIN ZIMMERMAN ([id number]) 1955 F Date Time Provider Department 09/25/20 VAUGHN OCONNELL ASWSTR During your visit today, we recorded the following information about you: Conchita Conroy 09/25/2020 9:28 AM Signed Need to have order for the colonoscopy procedure Conchita Oocnnell III, MD 09/28/2020 8:06 AM Signed done Allergies As of Date: 09/25/2020 (No Known Allergies) Date Reviewed: 09/24/2020 Reviewed by: Shabbir Rome LPN - Fully Assessed Reason for Visit: Colonoscopy Order [Other] Primary Visit Diagnosis:Encounter for screening for malignant neoplasm of colon [Z12.11] Order(s):COLONOSCOPY SCRN NOT HIGH RISK [[id number]] Order #: [id number]: 1 FUTURE PRE-PROCEDURE AND PRE-OPERATIVE COVID [SQPOCOVD] Order #: [id number] FUTURE Prescriptions as of 09/25/2020 Sig: VITAMIN D3-VITAMIN K2 ORAL Take 1,000 Units by mouth. PROLIA SUBCUTANEOUS Inject subcutaneously. DAILY VITAMIN TABLET Take one(1) tablet daily. CALCIUM 600 WITH VITAMIN D3 6* one tablet daily Problem List As Of Date 09/25/2020 Noted Resolved VITAMIN D DEFICIENCY NOS [E55.9] 11/05/2008 BREAST DISORDER NOS [N64.9] 11/06/2008 Encounter Status:Closed by VAUGHN OCONNELL MD on 09/28/20 [facility] CNOVon 09-24-2020 CNOV Office Visit (GENSWS ) -------- MAHIN ZIMMERMAN ([id number]) 1955 F Date Time Provider Department 09/24/20 10:00 AM VAUGHN OCONNELL During your visit today, we recorded the following information about you: Temperature Blood pressure Weight Height 97.4 degrees 128/82 60.6 kg 1.651 m Vaughn Oconnell III, MD 09/24/2020 10:51 AM Signed HISTORY AND PHYSICAL Mahin Zimmerman 1955 REFERRING PHYSICIAN: Spring Vallejo DO CHIEF COMPLAINT: No chief complaint on file. HPI: The patient is a 65 year old female referred for endoscopy. Mahin notes the following GI complaints: Mahin denies abdominal pain.. Mahin denies diarrhea. Mahin notes occasional constipation. aMhin denies a change in bowel habits. Mahin denies melena. Mahin denies bright red blood per rectum. Mahin denies hemorrhoids. The patient notes no history of upper GI complaints. Mahin has undergone prior endoscopy. 06/2010 The patient is being seen by me today at the request of Dr. Spring Vallejo DO for my opinion and advice regarding Encounter for screening for malignant neoplasm of colon (primary encounter diagnosis) . PAST MEDICAL HISTORY Diagnosis Date - Abnormal mammogram, unspecified - Allergic rhinitis due to other allergen - Disorder of bone and cartilage, unspecified Hx osteoporosis - Mammographic microcalcification PAST SURGICAL HISTORY Procedure Laterality Date - CATARACT EXTRACTION HX Left 03/2020 - COLONOSCOP W/ OR W/O [facility] SPEC 06/16/10 - PAST SURGICAL HISTORY OF left knee x2 - STEREOTACTIC CORE BIOPSY 10/23/07, 10/20 Current Outpatient Medications Medication Sig - cholecalciferol, vitD3,/vit K2 (VITAMIN D3-VITAMIN K2 ORAL) Take 1,000 Units by mouth. - DENOSUMAB (PROLIA SUBCUTANEOUS) Inject subcutaneously. - multivitamins(DAILY VITAMIN TAB) Take one(1) tablet daily. - calcium carbonate/vitamin d3(CALCIUM 600 WITH VITAMIN D3 600 MG (1,500)-200 UNIT TAB) one tablet daily No current facility-administered medications for this visit. ALLERGIES: Patient has no known allergies. PERSONAL HISTORY: Social History Tobacco Use - Smoking status: Never Smoker Substance Use Topics - Alcohol use: Yes Comment: rarely - Drug use: No FAMILY HISTORY: FAMILY HISTORY Problem Relation Age of Onset - Allergies Mother - Hearing Loss Mother - Heart Mother - Osteoporosis Mother - Breast Cancer Mother - Breast Cancer Maternal Aunt at age 40 - Diabetes Paternal Grandmother - Stroke Paternal Grandmother - Hearing Loss Father - Heart Father - Hearing Loss Paternal Grandfather - Heart Paternal Grandfather [place] - Osteoporosis Sister osteopenia - Osteoporosis Other several cousins - Prostate Cancer Maternal Grandfather - Stroke Maternal Grandmother REVIEW OF SYMPTOMS: The review of systems data was entered by the nurse and reviewed by me Nursing Notes: Janell Anderson LPN 09/24/2020 10:25 AM Signed REVIEW OF SYSTEMS: General: The patient denies fatigue, denies weight loss, denies weight gain, denies feeling hot, and denies feelings of cold. Eyes: The patient denies glaucoma, NOTES eye injury/surgery, wears glasses or contacts. Ear/Nose/Throat: The patient NOTES allergies, denies hayfever, denies ear infections, and denies bloody noses. Cardiovascular: The patient denies chest pain, denies heart disease, denies high blood pressure,denies cardiac stent, denies prior heart attack, denies irregular heart beat, denies high cholesterol, denies poor circulation, denies heart failure, other cardiac issues, denies claudication, NOTES cold feet, denies peripheral arterial stent. Respiratory: The patient denies tuberculosis, denies pneumonia, denies frequent cough, denies pulmonary embolism, denies shortness of breath, and denies coughing up blood. Gastrointestinal: The patient denies difficulty swallowing, denies acid reflux, denies ulcers, denies vomiting, denies jaundice/hepatitis, denies gallbladder problems, denies black or tarry stools, denies hemorrhoids, denies bleeding from rectum, denies diverticulitis, denies constipation, denies diarrhea, denies loss of stool control, and denies hernias. Kidney/Bladder: The patient denies kidney stones, denies urine infections, and denies bloody urine. Skin: The patient denies a history of skin cancer, denies bleeding/changing moles, and denies a history of skin rash. Neurologic: The patient denies a history of epilepsy/convulsions, denies headaches, denies head/spinal injuries, and denies stroke/TIA. Psychiatric: The patient denies psychiatric medications, denies depression, and denies voices, denies substance abuse. Endocrine: The patient denies thyroid disorders, denies diabetes, and denies hormonal problems. Hematologic: The patient denies a history of bruising, denies bleeding, and denies anemia, denies blood clots. Infections: The patient (more content not included)... Normal [facility] CNPNon 09-24-2020 CNPN Telephone ([employer]) -------- MAHIN ZIMMERMAN ([id number]) 1955 F Date Time Provider Department 09/24/20 VAUGHN OCONNELL During your visit today, we recorded the following information about you: Janell Anderson LPN 09/24/2020 10:26 AM Signed Patient scheduled for colonoscopy in the [facility] on 09/30/[address] Oconnell. patient is using the Miralax prep. Allergies As of Date: 09/24/2020 (No Known Allergies) Date Reviewed: 09/24/2020 Reviewed by: Shabbir Rome LPN - Fully Assessed Reason for Visit: Procedure [88] Primary Visit Diagnosis:Encounter for screening for malignant neoplasm of colon [Z12.11] Order(s):SURGICAL REQUEST - ELECTIVE (03/2020) [[id number]] Order #: [id number]: 1 Prescriptions as of 09/24/2020 Sig: VITAMIN D3-VITAMIN K2 ORAL Take 1,000 Units by mouth. PROLIA SUBCUTANEOUS Inject subcutaneously. DAILY VITAMIN TABLET Take one(1) tablet daily. CALCIUM 600 WITH VITAMIN D3 6* one tablet daily Problem List As Of Date 09/24/2020 Noted Resolved VITAMIN D DEFICIENCY NOS [E55.9] 11/05/2008 BREAST DISORDER NOS [N64.9] 11/06/2008 Encounter Status:Closed by JANELL ANDERSON LPN on 09/24/20 Normal [facility] HOSPon 09-24-2020 HOSP Patient:Pranay Zimmerman MRN: Height:5' 5 (1.651 m) Weight:133 lb 9.6 oz (60.601 kg) Outpatient Medications as of 09/30/20: cholecalciferol, vitD3,/vit K2 (VITAMIN D3-VITAMIN K2 ORAL) DENOSUMAB (PROLIA SUBCUTANEOUS) multivitamins(DAILY VITAMIN TAB) calcium carbonate/vitamin d3(CALCIUM 600 WITH VITAMIN D3 600 MG (1,500)-200 UNIT TAB) Admission/Clinic Administered Medications as of 09/30/20: lactated ringers infusion fentaNYL 50 mcg/mL 25-100 mcg injection (SUBLIMAZE) midazolam 1-5 mg injection (VERSED) diphenhydrAMINE 12.5-50 mg injection (BENADRYL) Problem List: Unspecified vitamin D deficiency [E55.9] Unspecified breast disorder [N64.9] Encounter for screening for malignant neoplasm of colon [Z12.11] Allergies: No Known Allergies Date Verified:09/30/20 Lab Values No results within the last 30 days for the following basenames: K,HCT Progress Notes ([facility]): Conchita Conroy 09/25/2020 9:28 AM Signed Need to have order for the colonoscopy procedure Conchita Oconnell III, MD 09/28/2020 8:06 AM Signed done Progress Notes ([facility]): Janell Anderson LPN 09/24/2020 10:26 AM Signed Patient scheduled for colonoscopy in the [facility] on 09/30/[address] Oconnell. patient is using the Miralax prep. Normal [facility] Progress note 09-24-2020 Note Date & Type Note Facility 09-24-2020 Note HNO ID: [id number] Author: Vaughn Oconnell Service: ? Author Type: Physician Type: Progress Notes Filed: 09/24/2020 10:51 AM Note Text: HISTORY AND PHYSICAL Mahin Zimmerman 1955 REFERRING PHYSICIAN: Spring Vallejo DO CHIEF COMPLAINT: No chief complaint on file. HPI: The patient is a 65 year old female referred for endoscopy. Mahin notes the following GI complaints: Mahin denies abdominal pain.. Mahin denies diarrhea. Mahin notes occasional constipation. Mahin denies a change in bowel habits. Mahin denies melena. Mahin denies bright red blood per rectum. Mahin denies hemorrhoids. The patient notes no history of upper GI complaints. Mahin has undergone prior endoscopy. 06/2010 The patient is being seen by me today at the request of Dr. Spring Vallejo DO for my opinion and advice regarding Encounter for screening for malignant neoplasm of colon (primary encounter diagnosis) . PAST MEDICAL HISTORY Diagnosis Date - Abnormal mammogram, unspecified - Allergic rhinitis due to other allergen - Disorder of bone and cartilage, unspecified Hx osteoporosis - Mammographic microcalcification PAST SURGICAL HISTORY Procedure Laterality Date - CATARACT EXTRACTION HX Left 03/2020 - COLONOSCOP W/ OR W/O [facility] SPEC 06/16/10 - PAST SURGICAL HISTORY OF left knee x2 - STEREOTACTIC CORE BIOPSY 10/23/07, 10/20 Current Outpatient Medications Medication Sig - cholecalciferol, vitD3,/vit K2 (VITAMIN D3-VITAMIN K2 ORAL) Take 1,000 Units by mouth. - DENOSUMAB (PROLIA SUBCUTANEOUS) Inject subcutaneously. - multivitamins(DAILY VITAMIN TAB) Take one(1) tablet daily. - calcium carbonate/vitamin d3(CALCIUM 600 WITH VITAMIN D3 600 MG (1,500)-200 UNIT TAB) one tablet daily No current facility-administered medications for this visit. ALLERGIES: Patient has no known allergies. PERSONAL HISTORY: Social History Tobacco Use - Smoking status: Never Smoker Substance Use Topics - Alcohol use: Yes Comment: rarely - Drug use: No FAMILY HISTORY: FAMILY HISTORY Problem Relation Age of Onset - Allergies Mother - Hearing Loss Mother - Heart Mother - Osteoporosis Mother - Breast Cancer Mother - Breast Cancer Maternal Aunt at age 40 - Diabetes Paternal Grandmother - Stroke Paternal Grandmother - Hearing Loss Father - Heart Father - Hearing Loss Paternal Grandfather - Heart Paternal Grandfather [place] - Osteoporosis Sister osteopenia - Osteoporosis Other several cousins - Prostate Cancer Maternal Grandfather - Stroke Maternal Grandmother REVIEW OF SYMPTOMS: The review of systems data was entered by the nurse and reviewed by me Nursing Notes: Janell Anderson LPN 09/24/2020 10:25 AM Signed REVIEW OF SYSTEMS: General: The patient denies fatigue, denies weight loss, denies weight gain, denies feeling hot, and denies feelings of cold. Eyes: The patient denies glaucoma, NOTES eye injury/surgery, wears glasses or contacts. Ear/Nose/Throat: The patient NOTES allergies, denies hayfever, denies ear infections, and denies bloody noses. Cardiovascular: The patient denies chest pain, denies heart disease, denies high blood pressure,denies cardiac stent, denies prior heart attack, denies irregular heart beat, denies high cholesterol, denies poor circulation, denies heart failure, other cardiac issues, denies claudication, NOTES cold feet, denies peripheral arterial stent. Respiratory: The patient denies tuberculosis, denies pneumonia, denies frequent cough, denies pulmonary embolism, denies shortness of breath, and denies coughing up blood. Gastrointestinal: The patient denies difficulty swallowing, denies acid reflux, denies ulcers, denies vomiting, denies jaundice/hepatitis, denies gallbladder problems, denies black or tarry stools, denies hemorrhoids, denies bleeding from rectum, denies diverticulitis, denies constipation, denies diarrhea, denies loss of stool control, and denies hernias. Kidney/Bladder: The patient denies kidney stones, denies urine infections, and denies bloody urine. Skin: The patient denies a history of skin cancer, denies bleeding/changing moles, and denies a history of skin rash. Neurologic: The patient denies a history of epilepsy/convulsions, denies headaches, denies head/spinal injuries, and denies stroke/TIA. Psychiatric: The patient denies psychiatric medications, denies depression, and denies voices, denies substance abuse. Endocrine: The patient denies thyroid disorders, denies diabetes, and denies hormonal problems. Hematologic: The patient denies a history of bruising, denies bleeding, and denies anemia, denies blood clots. Infections: The patient NOTES a history of measles and mumps, denies rheumatic fever, and denies sexually transmitted diseases. Musculoskeletal: The patient denies back pain/injury, denies back problems, denies sciatica, denies knee/foot trouble, denies arthritis, or denies gout. When was patien (more content not included)... [facility] Summary Purpose Family History No Family History Records Found Advance Directives No Advanced Directives Records Found Additional Source Comments INFORMATION SOURCE (unrecogn ized section and content) DATE CREATED AUTHOR 09/10/2021 [facility] FOR RECORDS PERTAINING TO PATIENTS WHO ARE OR HAVE BEEN ENROLLED IN A CHEMICAL DEPENDENCY/SUBSTANCEABUSE PROGRAM, SOME INFORMATION MAY BE OMITTED. This clinical summary was aggregated from multiple sources. Caution should be exercised in using it in the provision of clinical care. This summary normalizes information from multiple sources, and as a consequence, information in this document may materially change the coding, format and clinical context of patient data. In addition, data may be omitted in some cases. CLINICAL DECISIONS SHOULD BE BASED ON THE PRIMARY CLINICAL RECORDS. [facility] [employer] [facility]. provides no warranty or guarantee of the accuracy or completeness of information in this document.
== END | disposition home or self-care (01) ==
LOC: OPBI 07:54
PROVIDERS: PCP Family Medicine; Referring Provider Nurse Practitioner Family; Visit Provider Nurse Practitioner Family
DX: Z12.31 Encounter for screening mammogram for malignant neoplasm of breast (principal); Z80.3 Family history of malignant neoplasm of breast
CPT/HCPCS: 77063; 77067

== ENCOUNTER → 2024-11-25 | Outpatient (CLI) | payer MEDICARE, OTHER, SELFPAY ==
[2024-11-25 10:13] LABS: Absolute Neutrophil Count 2.2 X10^3/uL (2.0-7.7); Basophil# 0.03 X10^3/uL; Basophil% 0.7 % (0-1); Eosinophil# 0.21 X10^3/uL; Hematocrit 43.1 % (37-47); Hemoglobin 14.3 g/dL (12.0-15.0); Lymphocyte % 31.2 % (19-41); Mean Corp Hgb Conc 33.2 g/dL (32-36); Mean Corpuscular Hgb 30.2 pg (27.0-32.0); Mean Corpuscular Volume 91.1 fL (81-99); Mean Platelet Vol. 9.8 fl (6.2-12.0); Monocyte# 0.38 X10^3/uL; Monocyte% 9.1 % (0-10); NRBC Flagged by Analyzer 0 % (0-5); Neutrophil # 2.24 X10^3/uL (2.7-7.7); Neutrophil % 53.8 % (47-70); Platelet Count 245 K/mm3 (150-450); RBC Distribution Width CV 12.6 % (11.6-14.6); RBC Distribution Width SD 41.8 fl (35.1-43.9); Red Blood Count 4.73 M/mm3 (4.2-5.4); White Blood Count 4.2 K/mm3 (4.4-11.0)
[2024-11-25 11:01] LABS: Cholesterol 209 mg/dL (<=200); High Density Lipoprotein 50 mg/dL; Low Density Lipoprotein Calc. 126 mg/dL; Triglycerides 169 mg/dL; Very Low Density Lipoprotein 34 mg/dL (5-40); cholesterol:hdl ratio screen 4.21
[2024-11-25 11:08] LABS: ALB/GLOB Ratio 1.6 RATIO (0.9-2.4); AST(SGOT) 25 U/L (<=31); Alanine Aminotransfer ALT/SGPT 19 U/L (<=34); Albumin, Serum 4.3 g/dL (3.4-4.8); Alkaline Phosphatase 114 U/L (35-104); Anion Gap 11 (5-15); BUN 11 mg/dL (4-19); BUN/Creat Ratio 14.4 RATIO (10-20); Calcium,Total 9.6 mg/dL (7.6-11.0); Carbon Dioxide 26.8 mmol/L (21.0-32.0); Chloride 103 mmol/L (98-108); Creatinine, Serum 0.76 mg/dL (0.70-1.20); EST Glomerular Filtration Rate 85 (>60); Globulin 2.7 g/dL (2.2-4.2); Glucose 82 mg/dL (70-99); Potassium 4.2 mmol/L (3.3-5.1); Sodium Level 141 mmol/L (133-145); Total Bilirubin 0.37 mg/dL (0.00-1.30)
== END | disposition home or self-care (01) ==
LOC: LAB 08:36
PROVIDERS: PCP Family Medicine; Referring Provider Family Medicine; Visit Provider Family Medicine
DX: E78.5 Hyperlipidemia, unspecified (principal); Z51.81 Encounter for therapeutic drug level monitoring
CPT/HCPCS: 36415; 80053; 80061; 85025

== ENCOUNTER → 2025-06-11 | Outpatient (CLI) | payer MEDICARE, OTHER, SELFPAY ==
--- NOTE | 2025-06-11 10:44 | BI_ITS ---
EXAM: BI/SCRN MAMM (CAD)W/JACLYN BILAT
== END | disposition home or self-care (01) ==
LOC: OPBI 10:43
PROVIDERS: PCP Family Medicine; Referring Provider Family Medicine; Visit Provider Family Medicine
DX: Z12.31 Encounter for screening mammogram for malignant neoplasm of breast (principal)
CPT/HCPCS: 77063; 77067